=== PATIENT | male | born 1970 | race Two or more races ===

== ENCOUNTER → 2018-05-10 | Outpatient (CLI) | payer OTHER ==
[~2018-05-10] MED LIST: BENZ100C PO; IOHEXOL 300 MG/ML 100ML VIAL. IV ONE; PRED50TA PO; PROVENTIL HFA6.7 G2 INH
--- NOTE | 2018-05-10 16:23 | KCIC ---
CT CHEST WO/W CONTRAST Indication: Asbestos exposure, difficulty breathing Technique: Pre and postcontrast CT imaging was performed of the chest, multiplanar reconstruction images submitted. One or more of the following individualized dose reduction techniques were utilized for this examination: 1. Automated exposure control 2. Adjustment of the mA and/or kV according to patient size 3. Use of iterative reconstruction technique. Comparison: None Findings: There is some motion degradation. There are calcified pleural plaques in the left. No discrete mass is identified. There is some linear reticular density of the left lower lobe and to lesser degree of the left upper lobe extending to the pleural surface likely due to fibrotic change. There is no pleural or pericardial effusion or pneumothorax. There is no lobar consolidation. Major airways are patent. There is partially calcified subcarinal node. IMPRESSION: 1. 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 There is linear likely fibrotic change left lower lobe and to lesser degree of left upper lobe. Electronically signed by: Shaka Castaneda MD (05/10/2018 4:19 PM) [facility]-KCIC1
== END | disposition home or self-care (01) ==
LOC: KCIC CT 10:55
PROVIDERS: ATTEND Family Medicine
DX: J92.0 Pleural plaque with presence of asbestos (principal); J98.4 Other disorders of lung; Z77.090 Contact with and (suspected) exposure to asbestos
CPT/HCPCS: 71270; Q9967

== ENCOUNTER 2018-07-30 09:29 | Emergency (ER) | payer OTHER ==
[~2018-07-30] VITALS: Ht 167.6 cm; Wt 68.0 kg
[2018-07-30 10:23] VITALS: BP 140/88
--- NOTE | 2018-07-30 10:36 | PHYS DOC ---
Past Medical History Past Medical History: No Pertinent History Past Surgical History: No Surgical History Alcohol Use: Heavy Additional Information: WHISKEY DAILY Drug Use: None Adult General Chief Complaint Chief Complaint: COUGH HPI HPI Patient is a 48 year old male who presents complaining of a cough productive in nature for 2 days. Patient is also complaining of body aches. He states he coughed hard enough that he vomited last night. Denies any abdominal pain, chest pain or shortness of breath. Denies any history of smoking. Historian was patient through rayon winder for Haitian he brought to the ED with Review of Systems Review of Systems Constitutional: Denies fever or chills [] Eyes: Denies change in visual acuity, redness, or eye pain [] HENT: Denies nasal congestion or sore throat [] Respiratory: Reports cough denies shortness of breath [] Cardiovascular: No additional information not addressed in HPI [] GI: Reports posttussive emesis. Denies abdominal pain, nausea, bloody stools or diarrhea [] : Denies dysuria or hematuria [] Musculoskeletal: Denies back pain or joint pain [] Integument: Denies rash or skin lesions [] Neurologic: Denies headache, focal weakness or sensory changes [] All other systems were reviewed and found to be within normal limits, except as documented in this note. Allergies Allergies Allergies Coded Allergies Type Severity Reaction Last Updated Verified No Known Drug Allergies 05/10/18 No Physical Exam Physical Exam Constitutional: Well developed, well nourished, no acute distress, non-toxic appearance. [] HENT: Normocephalic, atraumatic, bilateral external ears normal, oropharynx moist, no oral exudates, nose normal. [] Eyes: PERRLA, EOMI, conjunctiva normal, no discharge. [] Neck: Normal range of motion, no tenderness, supple, no stridor. [] Cardiovascular:Heart rate regular rhythm, no murmur [] Lungs & Thorax: Bilateral breath sounds clear to auscultation [] Abdomen: Bowel sounds normal, soft, no tenderness, no masses, no pulsatile masses. [] Skin: Warm, dry, no erythema, no rash. [] Back: No tenderness, no CVA tenderness. [] Extremities: No tenderness, no cyanosis, no clubbing, ROM intact, no edema. [] Neurologic: Alert and oriented X 3, normal motor function, normal sensory function, no focal deficits noted. [] Psychologic: Affect normal, judgement normal, mood normal. [] Current Patient Data Vital Signs Vital Signs Date Time Temp Pulse Resp B/P (MAP) Pulse Ox O2 Delivery O2 Flow Rate FiO2 07/30/18 10:23 98.0 69 18 140/88 (105) 95 Room Air 98.0 EKG EKG [] Radiology/Procedures Radiology/Procedures [] Course & Med Decision Making Course & Med Decision Making Pertinent Labs and Imaging studies reviewed. (See chart for details) This is a 48-year-old male patient who presents to the ED today complaining of cough for 2 days. Chest x-ray interpreted by radiologist as negative for any acute findings. Symptoms are likely viral. Patient was discharged with albuterol inhaler, prednisone, Tessalon Perles. Follow-up with PCP in 1-2 weeks. Provided return precautions and discharged in stable condition. Dragon Disclaimer Dragon Disclaimer This electronic medical record was generated, in whole or in part, using a voice recognition dictation system. Departure Departure Impression: Primary Impression: Acute bronchitis Disposition: 01 HOME, SELF-CARE Condition: STABLE Referrals: NO PCP (PCP) Follow-up with your own doctor in 1-2 weeks Patient Instructions: Acute Bronchitis, [id number]-[id number] Additional Instructions: You were evaluated in the emergency room, your chest x-ray was negative for any acute findings. Your symptoms are likely viral. We put on medications, take them as prescribed. Follow-up with your own doctor in 1-2 weeks. Scripts Albuterol Sulfate (Proventil Hfa) 6.7 Gm Hfa.aer.ad 1 PUFF INH PRN Q6HRS PRN for SHORTNESS OF BREATH, #1 INHALER Prov: BOB COON EXAMINING OFFICER 07/30/18 Prednisone (PREDNISONE) 50 Mg Tablet 1 TAB PO DAILY, #5 TAB Prov: MUTUNGABOB EXAMINING OFFICER 07/30/18 Benzonatate (TESSALON PERLE) 100 Mg Capsule 1 CAP PO TID, #30 CAP Prov: MUTUNGABOB EXAMINING OFFICER 07/30/18 Problem Qualifiers Primary Impression: Acute bronchitis Bronchitis organism: unspecified organism Qualified Codes: J20.9 - Acute bronchitis, unspecified BOB COON EXAMINING OFFICER July 30, 2018 10:36
--- NOTE | 2018-07-30 10:37 | RAD ---
Two-view chest dated 07/30/2018. Comparison made to CT dated 05/10/2018. Clinical indication: Cough. FINDINGS: PA and lateral views the chest were obtained. Heart and mediastinal contours within normal limits. There is pleural thickening and pleural calcification of the lateral chest, unchanged. Lungs are otherwise clear. No pneumothorax. IMPRESSION: 1. No acute radiographic abnormality 2. Pleural thickening and pleural calcifications at the lateral left chest, unchanged. Electronically signed by: Chaparro Espinoza MD (07/30/2018 10:34 AM) [facility]
[2018-07-30] MEDS ORDERED: BENZ100C PO (10:49)
[2018-07-30] MEDS ORDERED: PROVENTIL HFA6.7 G2 INH (10:49)
[2018-07-30] MEDS ORDERED: PRED50TA PO (10:49)
== END 2018-07-30 11:10 | disposition home or self-care (01) ==
LOC: ER 09:29
DX: J20.9 Acute bronchitis, unspecified (principal); R11.10 Vomiting, unspecified; F10.20 Alcohol dependence, uncomplicated; Y90.9 Presence of alcohol in blood, level not specified
CPT/HCPCS: 71046; 99284

== ENCOUNTER → 2020-06-18 | Outpatient (CLI) | payer BC, OTHER ==
[~2020-06-18] MED LIST changes: -IOHEXOL 300 MG/ML 100ML VIAL. IV ONE
--- NOTE | 2020-06-18 16:12 | CARD ---
MR#: [id number] Date of Study: 06/18/2020 Ordering Physician: NANCIE ROJO, Referring Physician: NANCIE ROJO, Tech: Margaret Dalshirabetty, [facility] APPROVED REPORT INDICATION Chest Pain Elevated Blood Pressure without Diagnosis of HTN Reason : Patient complained of pain PROCEDURE The patient underwent an Exercise Stress Test using the Gabo Protocol. Blood pressure, heart rate, a nd EKG were monitored. An Echocardiogram was performed by missile technician in four stages in quad fashion. At peak stress four se lected images were obtained and placed side by side with resting images for comparison. STRESS ECHO FINDINGS The resting Echocardiogram showed normal left ventricular systolic contractility with an estimated Ej ection Fraction of about 55 %. The Resting Echocardiogram showed normal augmentation of myocardial wall segments using a 16 segment model. The Stress Echocardiogram showed normal augmentation of myocardial wall segments using a 16 segment m suzie. The Stress Echocardiogram left ventricular systolic contractility has an estimated Ejection Fraction of about 70%. Test Type: Exercise Stress Nurse/Tech: Luna Moody R.N. Test Indications: elevated b/p without diagnosis of htn Cardiac History and Allergies: No known cardiac Medications: see EHR Medical History: see EHR Resting ECG: SR with slight ST elevation in leads II, III, AVF Resting Heart Rate: 74 bpm Resting Blood Pressure: 127/79mmHg Pretest Chest Pain: Atypical angina Nurse/Tech Notes Pt stated that he had chest pain below left axillary area scale 3/10. S1S2, lungs CTA Stress Symptoms fatigue, increased chest pain and curled around to his back, this pain returned to his baseline level by end of recovery period POST EXERCISE Reason for Termination: Reached target heart rate Target HR: Yes Max HR: 173 bpm 100% of Maximum Predicted HR: 173 bpm Exercise duration: 7:17 min:sec, 3 Stage Exercise capacity: 10.1METs Max Blood Pressure: 149/80mmHg Blood Pressure response to exercise: Normal blood pressure response during stress. Heart Rate response to exercise: wnl Chest Pain: Yes. see above note Arrhythmia: No. ST Change: No. see above abnormal baselin INTERPRETATION Stress EKG Conclusion: The resting EKG shows a sinus rhythm with slight nonspecific ST-T wave changes . The stress EKG showed no significant changes from baseline. No EKG evidence of stress-induced ischemia. Preliminary Notification Critical Value: No <Conclusion> 1. Good exercise tolerance. 2. No EKG evidence of stress-induced ischemia or arrhythmias. 3. Normal resting LV systolic function. 4. Normal LV response to exertion with no regional wall motion abnormalities. 5. Low risk treadmill stress echo. Signed by : Wesley Rendon MD Electronically Approved : 06/18/2020 16:11:27
== END ==
LOC: ECHO 13:01
PROVIDERS: ATTEND Internal Medicine
DX: R03.0 Elevated blood-pressure reading, without diagnosis of hypertension (principal); R07.89 Other chest pain
CPT/HCPCS: 93017; 93350

== ENCOUNTER 2021-04-18 11:30 | Emergency (ER) | payer BC ==
[~2021-04-18] VITALS: Ht 167.6 cm; Wt 63.8 kg
--- NOTE | 2021-04-18 12:58 | PHYS DOC ---
Past Medical History Past Medical History: No Pertinent History (MARK VALLECILLO APRN) Past Surgical History: No Surgical History (MARK VALLECILLO APRN) Smoking Status: Never Smoker Alcohol Use: Heavy Drug Use: None (MARK VALLECILLO APRN) General Adult EDM: Chief Complaint: ABSCESS HPI: HPI: Patient is a 50-year-old male who presents to the emergency department today for left buttock pain that started 2 weeks ago. Patient saw his primary care provider who told him he had a pilonidal cyst and he needed to go to the emergen cy department for drainage. Patient is reporting l. sided inner buttock pain. He denies rectal pain, rectal bleeding, fevers, nausea/vomiting, hemorrhoids. Patient is burmeese speaking and an aerial photograph interpreter was used. (MARK VALLECILLO APRN) Review of Systems: Review of Systems: Constitutional: negative unless reported in HPI Eyes: negative unless reported in HPI HENT: negative unless reported in HPI Respiratory: negative unless reported in HPI Cardiovascular: negative unless reported in HPI GI: negative unless reported in HPI : negative unless reported in HPI Musculoskeletal: negative unless reported in HPI Integument: negative unless reported in HPI Neurologic: negative unless reported in HPI Endocrine: negative unless reported in HPI Lymphatic: negative unless reported in HPI Psychiatric: negative unless reported in HPI (MARK VALLECILLO APRN) Heart Score: C/O Chest Pain: N/A Risk Factors: Risk Factors: DM, Current or recent (<one month) smoker, HTN, HLP, family history of CAD, obesity. Risk Scores: Score 0 - 3: 2.5% MACE over next 6 weeks - Discharge Home Score 4 - 6: 20.3% MACE over next 6 weeks - Admit for Clinical Observation Score 7 - 10: 72.7% MACE over next 6 weeks - Early Invasive Strategies (MARK VALLECILLO APRN) Allergies: Allergies: Allergies Coded Allergies Type Severity Reaction Last Updated Verified No Known Drug Allergies 05/10/18 No (MARK VALLECILLO APRN) Physical Exam: PE: Constitutional: Well developed, well nourished, no acute distress, non-toxic ap pearance. [] HENT: Normocephalic, atraumatic, bilateral external ears normal, oropharynx moist, no oral exudates, nose normal. [] Eyes: PERRL, EOMI, conjunctiva normal, no discharge. [] Neck: Normal range of motion, no tenderness, supple, no stridor. [] Cardiovascular:Heart rate regular rhythm, no murmur [] Lungs & Thorax: Bilateral breath sounds clear to auscultation [] Abdomen: Bowel sounds normal, soft, no tenderness, no masses, no pulsatile masses. [] Skin: Warm, dry, no erythema, no rash. [] Back: Normal range of motion Extremities: No tenderness, no cyanosis, no clubbing, ROM intact, no edema. [] Neurologic: Alert and oriented X 3, normal motor function, normal sensory function, no focal deficits noted. [] Psychologic: Affect normal, judgement normal, mood normal. [] Rectal exam: No external hemorrhoids, no cysts or masses noted, no redness/warmth or drainage, no rectal pain, left-sided inner buttock pain with palpation (MARK VALLECILLO APRN) Current Patient Data: Labs: Laboratory Tests Test 04/18/21 15:34 White Blood Count 11.7 x10^3/uL Red Blood Count 4.57 x10^6/uL Hemoglobin 14.1 g/dL Hematocrit 41.1 % Mean Corpuscular Volume 90 fL Mean Corpuscular Hemoglobin 31 pg Mean Corpuscular Hemoglobin Concent 34 g/dL Red Cell Distribution Width 12.0 % Platelet Count 293 x10^3/uL Neutrophils (%) (Auto) 84 % Lymphocytes (%) (Auto) 9 % Monocytes (%) (Auto) 5 % Eosinophils (%) (Auto) 2 % Basophils (%) (Auto) 1 % Neutrophils # (Auto) 9.8 x10^3/uL Lymphocytes # (Auto) 1.0 x10^3/uL Monocytes # (Auto) 0.6 x10^3/uL Eosinophils # (Auto) 0.2 x10^3/uL Basophils # (Auto) 0.1 x10^3/uL Sodium Level 133 mmol/L Potassium Level 3.5 mmol/L Chloride Level 102 mmol/L Carbon Dioxide Level 26 mmol/L Anion Gap 5 Blood Urea Nitrogen 14 mg/dL Creatinine 0.8 mg/dL Estimated GFR (Cockcroft-Gault) 103.2 Glucose Level 117 mg/dL Calcium Level 8.0 mg/dL Current Medications Medications (Trade) Dose Ordered Sig/Flo Route PRN Reason Start Time Stop Time Status Last Admin Dose Admin Piperacillin Sod/ Tazobactam Sod 4.5 gm/Sodium Chloride 100 ml @ 200 mls/hr 1X ONCE IV 04/18/21 14:30 04/18/21 14:59 Cancel Fentanyl Citrate (Fentanyl 2ml Vial) 50 mcg 1X ONCE IVP 04/18/21 14:30 04/18/21 14:31 DC 04/18/21 14:46 Piperacillin Sod/ Tazobactam Sod 4.5 gm/Dextrose 100 ml @ 200 mls/hr 1X ONCE IV 04/18/21 14:30 04/18/21 14:59 DC 04/18/21 14:30 Iohexol (Omnipaque 300 Mg/ml) 75 ml 1X ONCE IV 04/18/21 14:45 04/18/21 14:48 DC 04/18/21 14:55 Info (CONTRAST GIVEN -- Rx MONITORING) 1 each PRN DAILY PRN MC SEE COMMENTS 04/18/21 15:00 04/20/21 14:59 Vital Signs: Vital Signs Date Time Temp Pulse Resp B/P (MAP) Pulse Ox O2 Delivery O2 Flow Rate FiO2 04/18/21 12:33 98.2 75 16 125/89 (101) 98 98.2 (MARK VALLECILLO APRN) EKG: EKG: [] (MARK VALLECILLO APRN) Radiology/Procedures: Radiology/Procedures: []REASON: rule out perirectal abscess PROCEDURE: CT ABD PELV W/ IV CONTRST ONLY INDICATION: Reason: rule out perirectal abscess / Spl. Instructions: omni 300 75ml / History: . Abdomen pain. COMPARISON: None. TECHNIQUE: Axial CT images were obtained through the abdomen and pelvis with intravenous contrast. One or more of the following individualized dose reduction techniques were utilized for this examination: 1. Automated exposure control; 2. Adjustment of the mA and/or kV according to patient size; 3. Use of iterative reconstruction technique. FINDINGS: Linear opacity left lung base could be from scarring or atelectasis. There is some calcifications of the pleura at the left chest base which can be sequela of this asbestos exposure unless the patient has had a procedure to explain this. Vascular: No abdominal aortic aneurysm. Hepatobiliary: No intrahepatic biliary duct dilation. Pancreas: No peripancreatic edema. Spleen: Spleen unremarkable. Renal/Bladder: No hydronephrosis. Subcentimeter low-density right renal lesion. Too small to characterize but most commonly from cyst. Gastrointestinal: The junction of the rectum and anus there is a irregular rim- enhancing structure identified with central low density component. This structure measures up to 32 x 27 mm. There are some wall thickening of the rectum and distal sigmoid. No periappendiceal inflammatory changes. Pars defects L5. Grade 1 anterolisthesis of L5 on S1. Degenerative changes the spine. Mild wedging of L1, T12 and T11 vertebral body. IMPRESSION: * Irregular shaped enhancing walled fluid collection is seen abutting the anal and rectal region. Could be secondary to abscess formation. There is some wall thickening of the adjacent bowel which could be associated with proctitis. Follow-up could be obtained to ensure that these findings resolve to exclude a persistent mass in the area which would be a less common cause of these findings. Electronically signed by: Luz Marina Lino MD (04/18/2021 3:21 PM) [id number] DICTATED and SIGNED BY: LUZ MARINA LINO MD DATE: 04/18/21 [id number] REASON: buttock pain r/o abscess PROCEDURE: EXT NON VASC LEFT US EXT NON VASC LEFT History:Reason: buttock pain r/o abscess / Spl. Instructions: / History: Comparison: None Technique: Sonographic examination of the perineum and gluteal region Findings: Complicated heterogeneous collection within the left perineum adjacent to the anus measures 3.0 x 1.4 x 1.7 cm. There is adjacent edema. Impression: 1. Complicated heterogeneous collection within the left perineum adjacent to the anus, concerning for abscess. Electronically signed by: Ludwig Herr DO (04/18/2021 1:37 PM) [facility] DICTATED and SIGNED BY: LUDWIG HERR DO DATE: 04/18/21 [id number] 0 (MARK VALLECILLO APRN) Course & Med Decision Making: Course & Med Decision Making Pertinent Labs and Imaging studies reviewed. (See chart for details) Patient presents to the emergency department for left knee and buttock pain x2 weeks. Patient reports that his primary told him that he had a pilonidal cyst that needed to be drained in the emergency department. Upon physical exam, it does not appear the patient has any external area of swelling or masses. There is no cellulitic appearance of the skin. Ultrasound was ordered to determine if there was any abscess noted. All did show possible abscess formation. Patient does have severe pain with digital rectal exam and rectum is firm. CT abdomen pelvis performed to rule out perirectal abscess. Lab work obtained. Patient was noted to have mild leukocytosis with a white blood cell count of 11.7. BMP was unremarkable. CT imaging of abdomen and pelvis shows a area of fluid collection 32 x 27 mm likely perirectal abscess and wall thickening to adjacent bowel likely proctitis. Patient was treated with Zosyn IV. I discussed these findings with Dr. Kaba and recommended vancomycin therapy and n.p.o. diet at midnight. As this likely needs to be drained in the OR, I contacted Dr. Peng with general surgery. I discussed these findings with patient as well as care plan he is agreeable at this time. ER bridge orders placed at this time [id number]. (MARK VALLECILLO APRN) Course & Med Decision Making I saw this patient with the nurse practitioner. I also performed my own H&P. The patient is Yemeni speaking only, use the [employer] phone for small business banking officer services to assist with H&P. The patient reports that he has had some anal and perirectal discomfort for the last few weeks. He was seen by an outpatient physician was prescribed clindamycin and some unknown pain medication. He has been taking this medication for the past 2 days. He denies fevers or chills, abdominal pain, nausea or vomiting. He denies constipation or diarrhea, he does report some caseous symptoms. No hematochezia reported. He reports that several years ago while living in [place], he had something similar occur, and he reports he was given a "injection" as well as some oral medications, and he reports that the symptoms had resolved after that. He denies any anal or perineal trauma or injury. He denies other genital or symptoms. On exam, the patient has a soft, nondistended, nontender abdominal abdomen, normal bowel sounds, no palpable masses organomegaly. On exam, there are no external lesions on his buttocks or his anal area. Exquisite tenderness to palpation at 9:00 on digital rectal exam, with palpable fullness around 9:00. There is no warmth, erythema, induration or fluctuance of the buttocks or the perianal area. No gross blood on ANGEL. No purulence noted on ANGEL. Perineum is intact, no warmth or erythema, no dusky discoloration or crepitus or subcutaneous emphysema. The patient is overall nontoxic in appearance. I recommended ultrasound initially, there did appear to be a complex fluid collection in the buttocks, concerning for possible perirectal involvement. I quested that a CT of the abdomen and pelvis with contrast be ordered, and findings are consistent with perirectal abscess. I recommended IV Zosyn be given, this was done. I recommend hospitalization and general surgery consultation. I personally spoke with Dr. Peng of general surgery, who will see the patient tomorrow. The patient was accepted for admission by Dr. Eisenberg. (HANSEL LUIS DO) Dragon Disclaimer: Ap Disclaimer: This electronic medical record was generated, in whole or in part, using a voice recognition dictation system. (MARK VALLECILLO APRN) Departure Departure Impression: Primary Impression: Perirectal abscess Disposition: ADMITTED INPATIENT Admitting Physician: ERIC (MARK VALLECILLO APRN) Admitting Physician: ERIC (Dr. Eisenberg) (HANSEL LUIS DO) Condition: GOOD Referrals: NO PCP (PCP) MARK VALLECILLO APRN Apr 18, 2021 12:58 HANSEL LUIS DO Apr 18, 2021 17:57
--- NOTE | 2021-04-18 13:40 | RAD ---
US EXT NON VASC LEFT History:Reason: buttock pain r/o abscess / Spl. Instructions: / History: Comparison: None Technique: Sonographic examination of the perineum and gluteal region Findings: Complicated heterogeneous collection within the left perineum adjacent to the anus measures 3.0 x 1.4 x 1.7 cm. There is adjacent edema. Impression: 1. Complicated heterogeneous collection within the left perineum adjacent to the anus, concerning fo r abscess. Electronically signed by: Ludwig Herr DO (04/18/2021 1:37 PM) [facility]
[2021-04-18] MEDS ORDERED: fentaNYL PF VIAL 100 MCG/2 ML VIAL IVP ONE (14:30)
[2021-04-18] MEDS ORDERED: PIPERACILLIN/TAZOBACTAM 4.5 GM in IV NORMAL SALINE 100ML 100 ML IV ONE (14:30)
[2021-04-18] MEDS ORDERED: PIPERACILLIN/TAZOBACTAM 4.5 GM in IV DEXTROSE 5% 100ML 100 ML IV ONE (14:30)
[2021-04-18] MEDS ORDERED: IOHEXOL 300 MG/ML 100ML VIAL. IV ONE (14:45)
[2021-04-18] MEDS ORDERED: CONTRAST GIVEN. MC PRN (15:00)
--- NOTE | 2021-04-18 15:24 | RAD ---
INDICATION: Reason: rule out perirectal abscess / Spl. Instructions: omni 300 75ml / History: . Abdom en pain. COMPARISON: None. TECHNIQUE: Axial CT images were obtained through the abdomen and pelvis with intravenous contrast. One or more of the following individualized dose reduction techniques were utilized for this examinat ion: 1. Automated exposure control; 2. Adjustment of the mA and/or kV according to patient size; 3 . Use of iterative reconstruction technique. FINDINGS: Linear opacity left lung base could be from scarring or atelectasis. There is some calcifications of the pleura at the left chest base which can be sequela of this asbestos exposure unless the patient h as had a procedure to explain this. Vascular: No abdominal aortic aneurysm. Hepatobiliary: No intrahepatic biliary duct dilation. Pancreas: No peripancreatic edema. Spleen: Spleen unremarkable. Renal/Bladder: No hydronephrosis. Subcentimeter low-density right renal lesion. Too small to characte rize but most commonly from cyst. Gastrointestinal: The junction of the rectum and anus there is a irregular rim-enhancing structure id entified with central low density component. This structure measures up to 32 x 27 mm. There are some wall thickening of the rectum and distal sigmoid. No periappendiceal inflammatory changes. Pars defects L5. Grade 1 anterolisthesis of L5 on S1. Degenerative changes the spine. Mild wedging of L1, T12 and T11 vertebral body. IMPRESSION: * Irregular shaped enhancing walled fluid collection is seen abutting the anal and rectal region. C ould be secondary to abscess formation. There is some wall thickening of the adjacent bowel which cou ld be associated with proctitis. Follow-up could be obtained to ensure that these findings resolve to exclude a persistent mass in the area which would be a less common cause of these findings. Electronically signed by: Yonathan Oconnor MD (04/18/2021 3:21 PM) [id number]
[2021-04-18 15:44] LABS: BASO # 0.1 x10^3/uL (0.0-0.2); BASO % 1 % (0-3); EOS # 0.2 x10^3/uL (0.0-0.7); EOS % 2 % (0-3); HEMATOCRIT 41.1 % (39.0-53.0); HEMOGLOBIN 14.1 g/dL (13.0-17.5); LYMPH % 9 % (24-48); MEAN CORPUSCULAR HEMOGLOBIN 31 pg (25-35); MEAN CORPUSCULAR HGB CONC 34 g/dL (31-37); MEAN CORPUSCULAR VOLUME 90 fL (79-100); MONO # 0.6 x10^3/uL (0.0-1.1); MONO % 5 % (0-9); NEUT # 9.8 x10^3/uL (1.8-7.7); NEUT % 84 % (31-73); PLATELET COUNT 293 x10^3/uL (140-400); RED BLOOD COUNT 4.57 x10^6/uL (4.30-5.70); WHITE BLOOD COUNT 11.7 x10^3/uL (4.0-11.0)
[2021-04-18 15:53] LABS: CREATININE 0.8 mg/dL (0.7-1.3); GFR 103.2; POTASSIUM 3.5 mmol/L (3.5-5.1)
[2021-04-18] MEDS ORDERED: MORPHINE SULFATE 2 MG/ML INJ. IVP PRN (17:30)
[2021-04-18] MEDS ORDERED: VANCOMYCIN PER PHARMACY MC PRN (17:30)
--- NOTE | 2021-04-18 17:30 | PDOC1 ---
History and Physical Date of Admission Date of Admission DATE: 04/18/21 TIME: 17:29 Identification/Chief Complaint Chief Complaint Perirectal abscess Source Source: Patient History of Present Illness History of Present Illness Mr Heredia is a 50-year-old male Lebanese speaking only who presents to the ED at the behest of his primary care physician for worsening perineal and left gluteal pain. [employer] phone utilized as well as family. He has had the pain for 2 weeks, worse on having BM. No nausea or vomiting. No recent travel or sick contacts. Pain is 4/10 on BM and 2/10 at rest, sharp, radiates into his groin. WBC 11.7, Na 133. Afebrile. CT abdomen pelvis and Ultrasound reveal a complicated heterogeneous collection within the left perineum adjacent to the anus measures 3.0 x 1.4 x 1.7 cm. Called for admission for further treatment. Past Medical History Cardiovascular: No pertinent hx Past Surgical History Past Surgical History: No pertinent history Family History Family History: Diabetes, High Cholestrol, Hypertension Social History Smoke: No ALCOHOL: heavy Drugs: None Current Medications Current Medications Current Medications Piperacillin Sod/ Tazobactam Sod 4.5 gm/Sodium Chloride 100 ml @ 200 mls/hr 1X ONCE IV ; Start 04/18/21 at 14:30; Stop 04/18/21 at 14:59; Status Cancel Fentanyl Citrate (Fentanyl 2ml Vial) 50 mcg 1X ONCE IVP Last administered on 04/18/21at 14:46; Start 04/18/21 at 14:30; Stop 04/18/21 at 14:31; Status DC Piperacillin Sod/ Tazobactam Sod 4.5 gm/Dextrose 100 ml @ 200 mls/hr 1X ONCE IV Last administered on 04/18/21at 14:30; Start 04/18/21 at 14:30; Stop 04/18/21 at 14:59; Status DC Iohexol (Omnipaque 300 Mg/ml) 75 ml 1X ONCE IV Last administered on 04/18/21at 14:55; Start 04/18/21 at 14:45; Stop 04/18/21 at 14:48; Status DC Info (CONTRAST GIVEN -- Rx MONITORING) 1 each PRN DAILY PRN MC SEE COMMENTS; Start 04/18/21 at 15:00; Stop 04/20/21 at 14:59 Active Scripts Active Proventil Hfa (Albuterol Sulfate) 6.7 Gm Hfa.aer.ad 1 Puff INH PRN Q6HRS PRN Prednisone 50 Mg Tablet 1 Tab PO DAILY Tessalon Perle (Benzonatate) 100 Mg Capsule 1 Cap PO TID Allergies Allergies: Coded Allergies: No Known Drug Allergies (Unverified , 05/10/18) ROS General: YES: Fatigue, Malaise, Appetite; No: Chills, Night Sweats, Other PSYCHOLOGICAL ROS: No: Anxiety, Behavioral Disorder, Concentration difficultie, Decreased libido, Depression, Disorientation, Hallucinations, Hostility, Irritablity, Memory difficulties, Mood Swings, Obsessive thoughts, Physical abus e, Sexual abuse, Sleep disturbances, Suicidal ideation, Other Eyes: No Blurry vision, No Decreased vision, No Double vision, No Dry eyes, No Excessive tearing, No Eye Pain, No Itchy Eyes, No Loss of vision, No Photophobia, No Scotomata, No Uses contacts, No Uses glasses, No Other HEENT: No: Heacaches, Visual Changes, Hearing change, Nasal congestion, Nasal discharge, Oral lesions, Sinus pain, Sore Throat, Epistaxis, Sneezing, Snoring, Tinnitus, Vertigo, Vocal changes, Other ALLERGY AND IMMUNOLOGY: No: Hives, Insect Bite Sensitivity, Itchy/Watery Eyes, Nasal Congestion, Post Nasal Drip, Seasonal Allergies, Other Hematological and Lymphatic: No: Bleeding Problems, Blood Clots, Blood Transfusions, Brusing, Night Sweats, Pallor, Swollen Lymph Nodes, Other ENDOCRINE: No: Breast Changes, Galactorrhea, Hair Pattern Changes, Hot Flashes, Malaise/lethargy, Mood Swings, Palpitations, Polydipsia/polyuria, Skin Changes, Temperature Intolerance, Unexpected Weight Changes, Other Breast: No New/Changing Breast Lumps, No Nipple changes, No Nipple discharge, No Other Respiratory: No: Cough, Hemoptysis, Orthopnea, Pleuritic Pain, Shortness of breath, SOB with excertion, Sputum Changes, Stridor, Tachypnea, Wheezing, Other Cardiovascular: No Chest Pain, No Palpitations, No Orthopnea, No Paroxysmal Noc. Dyspnea, No Edema, No Lt Headedness, No Other Gastrointestinal: Yes Abdominal Pain; No Nausea, No Vomiting, No Diarrhea, No Constipation, No Melena, No Hematochezia, No Other Genitourinary: No Dysuria, No Frequency, No Incontinence, No Hematuria, No Retention, No Discharge, No Urgency, No Pain, No Flank Pain, No Other, No , No , No , No , No , No , No Musculoskeletal: No Gait Disturbance, No Joint Pain, No Joint Stiffness, No Joint Swelling, No Muscle Pain, No Muscular Weakness, No Pain In:, No Swelling In:, No Other Neurological: No Behavorial Changes, No Bowel/Bladder ControlChng, No Confusion, No Dizziness, No Gait Disturbance, No Headaches, No Impaired Coord/balance, No Memory Loss, No Numbness/Tingling, No Seizures, No Speech Problems, No Tremors, No Visual Changes, No Weakness, No Other Skin: No Dry Skin, No Eczema, No Hair Changes, No Lumps, No Mole Changes, No Mottling, No Nail Changes, No Pruritus, No Rash, No Skin Lesion Changes, No Other, No Acne Physical Exam General: Alert, Oriented X3, Cooperative, mild distress HEENT: Atraumatic, PERRLA, EOMI, Mucous membr. moist/pink Lungs: Clear to auscultation, Normal air movement Heart: S1S2, RRR, no thrills, no rubs, no gallops, no murmurs Rectal Exam: other (pain on digital exam and palpable perineal mass on left, fluctuant) Extremities: No clubbing, No cyanosis, No edema, Normal pulses, No tenderness/swelling Skin: No rashes, No breakdown, No significant lesion Neuro: Normal gait, Normal speech, Strength at 5/5 X4 ext, Normal tone, Sensation intact, Cranial nerves 3-12 NL, Reflexes 2+ Psych/Mental Status: Mental status NL, Mood NL Vitals Vitals Vital Signs Date Time Temp Pulse Resp B/P (MAP) Pulse Ox O2 Delivery O2 Flow Rate FiO2 04/18/21 15:27 70 16 141/80 (100) 98 Room Air 04/18/21 12:33 98.2 98.2 Labs Labs Laboratory Tests Test 04/18/21 15:34 White Blood Count 11.7 x10^3/uL (4.0-11.0) Red Blood Count 4.57 x10^6/uL (4.30-5.70) Hemoglobin 14.1 g/dL (13.0-17.5) Hematocrit 41.1 % (39.0-53.0) Mean Corpuscular Volume 90 fL (79-100) Mean Corpuscular Hemoglobin 31 pg (25-35) Mean Corpuscular Hemoglobin Concent 34 g/dL (31-37) Red Cell Distribution Width 12.0 % (11.5-14.5) Platelet Count 293 x10^3/uL (140-400) Neutrophils (%) (Auto) 84 % (31-73) Lymphocytes (%) (Auto) 9 % (24-48) Monocytes (%) (Auto) 5 % (0-9) Eosinophils (%) (Auto) 2 % (0-3) Basophils (%) (Auto) 1 % (0-3) Neutrophils # (Auto) 9.8 x10^3/uL (1.8-7.7) Lymphocytes # (Auto) 1.0 x10^3/uL (1.0-4.8) Monocytes # (Auto) 0.6 x10^3/uL (0.0-1.1) Eosinophils # (Auto) 0.2 x10^3/uL (0.0-0.7) Basophils # (Auto) 0.1 x10^3/uL (0.0-0.2) Sodium Level 133 mmol/L (136-145) Potassium Level 3.5 mmol/L (3.5-5.1) Chloride Level 102 mmol/L (98-107) Carbon Dioxide Level 26 mmol/L (21-32) Anion Gap 5 (6-14) Blood Urea Nitrogen 14 mg/dL (8-26) Creatinine 0.8 mg/dL (0.7-1.3) Estimated GFR (Cockcroft-Gault) 103.2 Glucose Level 117 mg/dL (70-99) Calcium Level 8.0 mg/dL (8.5-10.1) Laboratory Tests Test 04/18/21 15:34 White Blood Count 11.7 x10^3/uL (4.0-11.0) Red Blood Count 4.57 x10^6/uL (4.30-5.70) Hemoglobin 14.1 g/dL (13.0-17.5) Hematocrit 41.1 % (39.0-53.0) Mean Corpuscular Volume 90 fL (79-100) Mean Corpuscular Hemoglobin 31 pg (25-35) Mean Corpuscular Hemoglobin Concent 34 g/dL (31-37) Red Cell Distribution Width 12.0 % (11.5-14.5) Platelet Count 293 x10^3/uL (140-400) Neutrophils (%) (Auto) 84 % (31-73) Lymphocytes (%) (Auto) 9 % (24-48) Monocytes (%) (Auto) 5 % (0-9) Eosinophils (%) (Auto) 2 % (0-3) Basophils (%) (Auto) 1 % (0-3) Neutrophils # (Auto) 9.8 x10^3/uL (1.8-7.7) Lymphocytes # (Auto) 1.0 x10^3/uL (1.0-4.8) Monocytes # (Auto) 0.6 x10^3/uL (0.0-1.1) Eosinophils # (Auto) 0.2 x10^3/uL (0.0-0.7) Basophils # (Auto) 0.1 x10^3/uL (0.0-0.2) Sodium Level 133 mmol/L (136-145) Potassium Level 3.5 mmol/L (3.5-5.1) Chloride Level 102 mmol/L (98-107) Carbon Dioxide Level 26 mmol/L (21-32) Anion Gap 5 (6-14) Blood Urea Nitrogen 14 mg/dL (8-26) Creatinine 0.8 mg/dL (0.7-1.3) Estimated GFR (Cockcroft-Gault) 103.2 Glucose Level 117 mg/dL (70-99) Calcium Level 8.0 mg/dL (8.5-10.1) Images Images CT abdomen/pelvis with IV contrast: Linear opacity left lung base could be from scarring or atelectasis. There is some calcifications of the pleura at the left chest base which can be sequela of this asbestos exposure unless the patient has had a procedure to explain this. Vascular: No abdominal aortic aneurysm. Hepatobiliary: No intrahepatic biliary duct dilation. Pancreas: No peripancreatic edema. Spleen: Spleen unremarkable. Renal/Bladder: No hydronephrosis. Subcentimeter low-density right renal lesion. Too small to characterize but most commonly from cyst. Gastrointestinal: The junction of the rectum and anus there is a irregular rim- enhancing structure identified with central low density component. This structure measures up to 32 x 27 mm. There are some wall thickening of the rectum and distal sigmoid. No periappendiceal inflammatory changes. Pars defects L5. Grade 1 anterolisthesis of L5 on S1. Degenerative changes the spine. Mild wedging of L1, T12 and T11 vertebral body. IMPRESSION: * Irregular shaped enhancing walled fluid collection is seen abutting the anal and rectal region. Could be secondary to abscess formation. There is some wall thickening of the adjacent bowel which could be associated with proctitis. Follow-up could be obtained to ensure that these findings resolve to exclude a persistent mass in the area which would be a less common cause of these findings. VTE Prophylaxis Ordered VTE Prophylaxis Devices: No VTE Pharmacological Prophylaxi: Yes Assessment/Plan Assessment/Plan A/P Perirectal abscess - given time course and location surgical debridement consideration would be appropriate. Vancomycin and zosyn ordered. NPO. IV fentanyl/morphine Hyponatremia - likely hypovolemic, ordered NSS Hyperglycemia - likely stress related, no DM history. FEN - NPO PPX - SCDs FULL CODE Dispo - inpatient Justifications for Admission Other Justification ZACH FONSECA MD Apr 18, 2021 17:29
[2021-04-18] MEDS ORDERED: VANCOMYCIN 1.5 GM in IV NORMAL SALINE 500ML BAG 500 ML IV ONE (18:30)
[2021-04-18 18:51] VITALS: BP 112/53
[2021-04-19] MEDS ORDERED: PIPERACILLIN/TAZOBACTAM 3.375 GM in IV NORMAL SALINE 50ML 50 ML IV SCH
[2021-04-19] MEDS ORDERED: VANCOMYCIN 1.25 GM in IV NORMAL SALINE 250ML 250 ML IV SCH (06:00)
== END 2021-04-18 19:37 | disposition left against medical advice (07) ==
LOC: ER 11:30 → UNDOADMIN 17:12 → 4 NORTH 17:12
DX: K61.1 Rectal abscess (principal)
CPT/HCPCS: 36415; 74177; 76881; 80048; 85025; 96365; 96367; 96375; 99285; J2543; J3010; J3370; J7040; J7060; Q9967